=== PATIENT | female | born 1970 | race Two or more races ===

== ENCOUNTER → 2017-03-17 | Outpatient (CLI) | payer MEDICAID | END | disposition home or self-care (01) | LOC: RT 10:40 | PROVIDERS: ATTEND Internal Medicine Pulmonary Disease | DX: J45.998 Other asthma (principal) | CPT/HCPCS: 94060; 94640 ==

== ENCOUNTER 2023-07-04 16:04 | Emergency (ER) | payer MEDICAID, OTHER ==
[~2023-07-04] VITALS: Ht 157.5 cm; Wt 94.5 kg
[2023-07-04 16:35] LABS: Basophils # (auto) 0 10 ^3/uL (0-0.2); Basophils % (auto) 0.6 % (0.0-2.0); Eosinophils # (auto) 0.1 10 ^3/uL (0-0.8); Eosinophils % (auto) 1.3 % (0.0-7.0); Hematocrit 41.5 % (36.0-46.0); Hemoglobin 14.1 g/dL (12.2-16.2); Lymphocytes # (auto) 0.8 10 ^3/uL (0.4-5.4); Lymphocytes % (auto) 11.1 % (10.0-50.0); Mean Corpuscular Hemoglobin 28.9 pg (28.0-32.0); Mean Corpuscular Hgb Conc. 33.9 g/dL (32.0-36.0); Mean Corpuscular Volume 85.4 fL (80.0-100.0); Monocytes # (auto) 0.7 10 ^3/uL (0-1.3); Monocytes % (auto) 10.3 % (0.0-12.0); Neutrophils # (auto) 5.4 10 ^3/uL (1.6-8.6); Neutrophils % (auto) 76.7 % (37.0-80.0); Nucleated Red Blood Cells % 0.1 %; Red Blood Cells 4.86 10^6/uL (4.0-5.20); Red Cell Distribution Width 13.5 % (11.8-14.3); White Blood Cell 7.1 10^3/uL (4.4-10.8)
[2023-07-04 17:06] LABS: Alanine Aminotransferase 34 U/L (7-40); Albumin 4.1 g/dL (3.2-4.8); Alkaline Phosphatase 111 U/L (46-116); Anion Gap 5.5 (5-15); Aspartate Aminotransferase 18 U/L (13-40); BUN/Creatinine Ratio 13.8 (10.0-20.0); Bilirubin, Total 0.5 mg/dL (0.2-1.0); Blood Urea Nitrogen 11 mg/dL (9-23); Calcium 9.3 mg/dL (8.5-10.1); Carbon Dioxide 29.5 mmol/L (20-30); Chloride 105 mmol/L (98-107); Glucose 107 mg/dL (74-106); Potassium 4.4 mmol/L (3.5-5.1); Sodium 140 mmol/L (136-145)
[2023-07-04 17:07] LABS: Total Protein 6.8 g/dL (5.7-8.2)
[2023-07-04 18:28] LABS: Urine Bacteria NONE SEEN /hpf (None Seen); Urine Blood Negative /uL (Negative); Urine Clarity Clear (Clear); Urine Color Yellow (Yellow); Urine Mucus FEW (None Seen); Urine Protein, UAD Negative (Negative); Urine Urobilinogen Normal (Negative); Urine WBC <1 /hpf (0 - 5); Urine pH 6.5 (5.0-8.0)
[2023-07-04] MEDS ORDERED: AZITTAB PO (19:17)
[2023-07-04 21:55] VITALS: BP 138/76; PULSE 84; RESP 16; TEMP 98.6; O2SAT 97
== END 2023-07-04 21:55 | disposition home or self-care (01) ==
LOC: ER 16:04
DX: R07.89 Other chest pain (principal); J40 Bronchitis, not specified as acute or chronic; Z88.2 Allergy status to sulfonamides
CPT/HCPCS: 36415; 71045; 80053; 81001; 84484; 85025; 93005

== ENCOUNTER 2024-04-01 15:15 | Emergency (ER) | payer MEDICAID ==
[~2024-04-01] VITALS: Ht 157.5 cm; Wt 96.0 kg
[~2024-04-01 15:15] MED LIST: AZITTAB PO
[2024-04-01 15:46] LABS: Basophils # (auto) 0.1 10 ^3/uL (0-0.2); Basophils % (auto) 0.9 % (0.0-2.0); Eosinophils # (auto) 0.4 10 ^3/uL (0-0.8); Eosinophils % (auto) 5.4 % (0.0-7.0); Hematocrit 43.7 % (36.0-46.0); Hemoglobin 14.8 g/dL (12.2-16.2); Lymphocytes # (auto) 1.1 10 ^3/uL (0.4-5.4); Lymphocytes % (auto) 13.5 % (10.0-50.0); Mean Corpuscular Hemoglobin 29.8 pg (28.0-32.0); Mean Corpuscular Volume 87.6 fL (80.0-100.0); Monocytes # (auto) 0.8 10 ^3/uL (0-1.3); Monocytes % (auto) 10.2 % (0.0-12.0); Neutrophils # (auto) 5.7 10 ^3/uL (1.6-8.6); Nucleated Red Blood Cells % 0.1 %; Red Blood Cells 4.98 10^6/uL (4.0-5.20); Red Cell Distribution Width 13.1 % (11.8-14.3); White Blood Cell 8.2 10^3/uL (4.4-10.8)
[2024-04-01 16:00] LABS: Alanine Aminotransferase 32 U/L (7-40); Albumin 4.3 g/dL (3.2-4.8); Alkaline Phosphatase 106 U/L (46-116); Anion Gap 6 (5-15); Aspartate Aminotransferase 19 U/L (13-40); BUN/Creatinine Ratio 15.1 (10.0-20.0); Blood Urea Nitrogen 11 mg/dL (9-23); Calcium 10.1 mg/dL (8.7-10.4); Carbon Dioxide 28 mmol/L (20-30); Chloride 106 mmol/L (98-107); Glucose 117 mg/dL (74-106); Potassium 4.3 mmol/L (3.5-5.1); Sodium 140 mmol/L (136-145)
[2024-04-01 16:01] LABS: Bilirubin, Total 0.5 mg/dL (0.2-1.0); Total Protein 7.4 g/dL (5.7-8.2)
[2024-04-01] MEDS: IOHEXOL 350 MG/ML 100ML IJ ONE ×2 (18:52→20:02)
[2024-04-01 22:20] VITALS: BP 123/65; TEMP 98
[2024-04-01 22:22] VITALS: PULSE 88; RESP 16; O2SAT 98
== END 2024-04-01 22:30 | disposition home or self-care (01) ==
LOC: ER 15:15
DX: I51.7 Cardiomegaly (principal); R07.89 Other chest pain; E11.9 Type 2 diabetes mellitus without complications; Z88.2 Allergy status to sulfonamides; Z79.899 Other long term (current) drug therapy
CPT/HCPCS: 36415; 71045; 71275; 80053; 83880; 84443; 84484; 85025; 85379; 93005; 99285; Q9967

== ENCOUNTER 2025-03-29 14:24 | Emergency (ER) | payer MEDICAID ==
[~2025-03-29] VITALS: Ht 157.5 cm; Wt 89.2 kg
[2025-03-29 14:55] VITALS: PULSE 74; RESP 17; O2SAT 100
--- NOTE | 2025-03-29 15:45 | ED.PDOC ---
GI ASSESSMENT HPI Comments 54 year old female presents to the ED with chief complaint of abdominal pain. Patient reports that she has been experiencing LUQ/LLQ abdominal pain with associated N/V/D and dizziness for the past 4 days, but has had similar symptoms intermittently since September 2024. Patient relays that her pain radiates to her back. Patient states she is currently on Mounjaro for her DM. Patient noted to have a near-syncopal episode in triage. Patient denies any hematemesis, melena, fever, chills, SOB, chest pain, dysuria, hematuria, or flank pain. Chief Complaint: Nausea/Vomiting Time Seen by MD: 15:28 Reviewed Notes: Nurses Notes, Medications, Allergies Allergies: Coded Allergies: Sulfa Antibiotics (Verified Allergy, Unknown, 07/04/23) Home Meds Active Scripts Azithromycin (Zithromax Z-B[place]) 250 Mg Tab, 250 MG PO DAILY for 5 Days, #6 TAB Prov:GUALBERTO PORTILLO 07/04/23 Information Source: Patient Mode of Arrival: Ambulatory Timing: Days Duration: Since onset Prehospital treatment: None Quality: Sharp Vomitus: Watery Stool: Watery Severity: Moderate Recent: None Recent Hx of: None Pain Location: LUQ, LLQ Associated sign and symptoms: Nausea, Vomiting, Diarrhea, Abdominal Pain, Faintness (x) Past Medical History PAST MEDICAL HISTORY: Asthma, DM Past Medical History (Other): Rheumatoid arthritis, patchy lung disease, unspecified immune disease Surgical History: Appendectomy, Cholecystectomy, Hysterectomy Surgical History (Other): Intestinal resection, lumpectomy of chest, bilateral hand surgery, neck surgery TECHNICAL RESEARCH SCIENTIST History: No Pertinent TECHNICAL RESEARCH SCIENTIST History Family History Family History: Reviewed,noncontributory to illness Social History Smoker: Non-Smoker Alcohol: Denies ETOH Use Drugs: Denies Drug Use Lives In: Home Constitutional: denies: chills, diaphoresis, fatigue, fever, malaise, sweats, weakness, others EENTM: denies: blurred vision, double vision, ear bleeding, ear discharge, ear drainage, ear pain, ear ringing, eye pain, eye redness, hearing loss, mouth pain, mouth swelling, nasal discharge, nose bleeding, nose congestion, nose pain, photophobia, tearing, throat pain, throat swelling, voice changes, others Respiratory: denies: cough, hemoptysis, orthopnea, SOB at rest, shortness of breath, SOB with excertion, stridor, wheezing, others Cardiovascular: reports: lightheadedness; denies: chest pain, dizzy spells, diaphoresis, Dyspnea on exertion, edema, irregular heart beat, left arm pain, palpitations, PND, syncope, others Gastrointestinal: reports: abdominal pain, diarrhea, nausea, vomiting; denies: abdomen distended, blood streaked bowels, constipated, dysphagia, difficulty swallowing, hematemesis, melena, poor appetite, poor fluid intake, rectal bleeding, rectal pain, others Genitourinary: denies: abnormal vagina bleeding, burning, dyspareunia, dysuria, flank pain, frequency, hematuria, incontinence, pain, , vagina discharge, urgency, others Neurological: denies: dizziness, fainting, headache, left sided numbness, left sided weakness, numbness, paresthesia, pre-existing deficit, right sided numbness, right sided weakness, seizure, speech problems, tingling, tremors, weakness, others Musculoskeletal: denies: back pain, gout, joint pain, joint swelling, muscle pain, muscle stiffness, neck pain, others Integumetry: denies: bruises, change in color, change in hair/nails, dryness, laceration, lesions, lumps, rash, wounds, others Allergic/Immunocompromised: denies: Difficulty Healing, Frequent Infections, Hives, Itching, others Hematologic/Lymphatic: denies: anemia, blood clots, easy bleeding, easy bruising, swollen glands, others Endocrine: denies: excessive hunger, excessive sweating, excessive thirst, excessive urination, flushing, intolerance to cold, intolerance to heat, unexplained weight gain, unexplained weight loss, others Psychiatric: denies: anxiety, bipolar disorder, depression, hopeless, panic disorder, schizophrenia, sleepless, suicidal, others All Other Systems: Reviewed and Negative Physical Exam General Appearance: Mild Distress, Obese HEENT: Normal ENT Inspection, PERRL/EOMI Neck: Full Range of Motion, Non-Tender, Normal, Normal Inspection Respiratory: Chest Non-Tender, Lungs Clear, No Accessory Muscle Use, No Respiratory Distress, Normal Breath Sounds Cardiovascular: No Edema, No JVD, No Murmur, No Gallop, Normal Peripheral Pulses, Regular Rate/Rhythm Breast Exam: Deferred Gastrointestinal: Distended, Epigastric, LUQ, No Organomegaly, No Pulsatile Mass, Normal Bowel Sounds, Soft, Tenderness Genitalia: Deferred Pelvic: Deferred Rectal: Deferred Extremities: No calf tenderness, Normal capillary refill, Normal inspection, Normal range of motion, Non-tender, No pedal edema Musculoskeletal : Apperance: Normal Neurologic: Alert, poultry dressing worker II-XII nml as Tested, No Motor Deficits, Normal Affect, Normal Mood, No Sensory Deficits Cerebellar Function: Normal Reflexes: Normal Skin: Dry, Normal Color, Warm Peripheral Pulses: 1+ carotid (R), 1+ carotid (L) Lymphatic: No Adenopathy EKG EKG : Pulse Rate (adult): 78 [place]: Normal Cardiac Rhythm: NSR Was a procedure done? Was a procedure done?: No GI differential Dx Differential Diagnosis: Constipation, Diverticular disease, Gastritis/PUD, Gastroenteritis, Inflammatory BD, Pancreatitis, UTI, Dehydration, Diabetes/ DKA, Drug toxicity, Electrolyte Imbalance, Food Poisoning, Bacterial, Viral, Ischemic Bowel (SPLENIC FLEXURE SYNDROME SPLENIC FLEXURE SYNDROME), Mass, Anemia Other Differential Diagnosis SPLENIC FLEXURE SYNDROME X-Ray, Labs, Meds, VS Vital Signs Date Time Temp Pulse Resp B/P (MAP) Pulse Ox O2 Delivery O2 Flow Rate FiO2 03/29/25 17:00 98.7 77 16 121/87 (98) 100 98.7 03/29/25 16:46 77 16 95/65 03/29/25 16:30 78 03/29/25 16:08 88 19 122/87 03/29/25 14:55 74 17 100 Room Air* 0 21 03/29/25 14:52 97.5 74 17 123/83 (96) 100 97.5 03/29/25 14:45 78 03/29/25 14:36 97.9 88 20 155/99 (117) 100 97.9 Lab Test 03/29/25 17:53 03/29/25 15:55 03/29/25 14:30 Range/Units Urine Color Light-yellow Yellow Urine Clarity Clear Clear Urine pH 6.0 5.0-9.0 Urine Specific [place] > 1.035 H 1.001-1.035 Urine Protein Trace H Negative Urine Ketones 1+ H Negative Urine Blood Negative Negative /uL Urine Nitrite Negative Negative Urine Bilirubin Negative Negative Urine Urobilinogen Normal Negative mg/dL Urine Leukocyte Esterase Negative Negative /uL Urine RBC 2 0 - 4 /hpf Urine Microscopic WBC 7 H 0-5 /HPF Urine Squamous Epithelial Cells Mod <5 /hpf Urine Bacteria Few H None Seen /hpf Urine Mucus Few None Seen Urine Glucose Normal Normal mg/dL White Blood Count 9.3 4.4-10.8 10^3/uL Red Blood Count 5.25 H 4.0-5.20 10^6/uL Hemoglobin 15.7 12.2-16.2 g/dL Hematocrit 45.9 36.0-46.0 % Mean Corpuscular Volume 87.3 80.0-100.0 fL Mean Corpuscular Hemoglobin 30.0 28.0-32.0 pg Mean Corpuscular Hemoglobin Concent 34.3 32.0-36.0 g/dL Red Cell Distribution Width 13.6 11.8-14.3 % Platelet Count 314 140-450 10^3/uL Mean Platelet Volume 6.9 6.9-10.8 fL Neutrophils (%) (Auto) 75.6 37.0-80.0 % Lymphocytes (%) (Auto) 10.0 10.0-50.0 % Monocytes (%) (Auto) 10.5 0.0-12.0 % Eosinophils (%) (Auto) 3.6 0.0-7.0 % Basophils (%) (Auto) 0.3 0.0-2.0 % Neutrophils # (Auto) 7.0 1.6-8.6 10 ^3/uL Lymphocytes # (Auto) 0.9 0.4-5.4 10 ^3/uL Monocytes # (Auto) 1.0 0-1.3 10 ^3/uL Eosinophils # (Auto) 0.3 0-0.8 10 ^3/uL Basophils # (Auto) 0 0-0.2 10 ^3/uL Nucleated Red Blood Cells 0.1 % Sodium Level 140 136-145 mmol/L Potassium Level 3.9 3.5-5.1 mmol/L Chloride Level 107 98-107 mmol/L Carbon Dioxide Level 24 20-31 mmol/L Anion Gap 9 5-15 Blood Urea Nitrogen 13 9-23 mg/dL Creatinine 0.81 0.550-1.02 mg/dL Glomerular Filtration Rate Calc 86 >90 mL/min BUN/Creatinine Ratio 16.0 10.0-20.0 Serum Glucose 89 74-106 mg/dL Calcium Level 9.6 8.7-10.4 mg/dL Magnesium Level 2.1 1.6-2.6 mg/dL Total Bilirubin 0.6 0.2-1.0 mg/dL Aspartate Amino Transferase (AST) 19 13-40 U/L Alanine Aminotransferase (ALT) 19 7-40 U/L Alkaline Phosphatase 98 46-116 U/L Total Protein 7.0 5.7-8.2 g/dL Albumin 4.5 3.2-4.8 g/dL Lipase 48 12-53 U/L POC Glucose 97 70-106 mg/dl Current Medications Medications (Trade) Dose Ordered Sig/Jada Route Start Time Stop Time Status Last Admin Metoclopramide HCl (Reglan Injection) 10 mg ONCE ONCE IV 03/29/25 15:45 03/29/25 15:48 DC 03/29/25 16:09 Morphine Sulfate 2 mg ONCE ONCE IV 03/29/25 15:45 03/29/25 15:48 DC 03/29/25 16:08 Sodium Chloride 500 ml @ 500 mls/hr Q1H ONCE IVB 03/29/25 15:45 03/29/25 16:44 DC 03/29/25 16:09 Sodium Chloride 1,000 ml @ 150 mls/hr Q6H40M ONCE IV 03/29/25 15:45 03/29/25 18:33 DC 03/29/25 16:46 X-Ray, Labs, Meds, VS Comment COURSE IN THE EMERGENCY DEPARTMENT EVENTFUL PATIENT CAME IN COMPLAINING OF NAUSEA VOMITING DIARRHEA AND LEFT-SIDED ABDOMINAL PAIN PATIENT WITH A HISTORY OF ASTHMA RHEUMATOID ARTHRITIS DIABETES CHEST X-RAY IS NORMAL EKG SHOWS NORMAL SINUS RHYTHM AT 78 CT ABDOMEN AND PELVIS NEGATIVE EXCEPT FOR SOME STOOL AT THE SPLENIC FLEXURE CBC NORMAL LIPASE 48 CMP NEGATIVE MAGNESIUM 2.1 PATIENT WILL BE DISCHARGED HOME TO FOLLOW UP WITH HER PCP Time of 1ST Reevaluation: 16:28 Reevaluation 1ST: Unchanged Patient Education/Counseling: Diagnosis, Treatment Family Education/Counseling: No Family Present Departure 1 Departure Time of Disposition: 18:42 Impression: Primary Impression: Left sided abdominal pain Additional Impressions: Splenic flexure syndrome Rheumatoid arthritis Qualified Codes: M05.9 - Rheumatoid arthritis with rheumatoid factor, unspecified Diabetes mellitus Disposition: 01 HOME / SELF CARE / HOMELESS Condition: Fair Additional Instructions: PUSH FLUIDS AND FOLLOW UP WITH YOUR PCP e-Prescriptions Magnesium Oxide (MAGNESIUM OXIDE) 400 Mg Tab 1 TAB PO DAILY, #30 TAB 5 Refills Prov: BLAISE RILEY MD 03/29/25 Sennosides-Docusate Sodium (Senna-Plus) 1 Tab Tab 2 TAB PO DAILY for 10 Days, #20 TAB Prov: BLAISE RILEY MD 03/29/25 Discharged With: Self Critical Care Note Critical Care Time?: No Stability Stability form required: No Heart Score Heart Score: Heart Score Response (Comments) Value History N/A 0 EKG Normal 0 Age 45-64 1 Risk Factors 1 or 2 risk factors 1 Troponin N/A 0 Total 2 I personally scribed for BLAISE RILEY MD ([email or web address]) on 03/29/25 at 15:45. Electronically submitted by Dmitriy Abdalla ([email or web address]). I personally scribed for BLAISE RILEY MD ([email or web address]) on 03/29/25 at 15:46. Electronically submitted by Dmitriy Abdalla ([email or web address]). BLAISE RILEY MD March 29, 2025 15:45
[2025-03-29] MEDS: MORPHINE SULFATE 4 MG/ML SYR/VIAL IV ONE (16:08)
[2025-03-29] MEDS: SODIUM CHLORIDE 0.9% 500 ML IVB ONE (16:09)
[2025-03-29] MEDS: METOCLOPRAMIDE HCL 5MG/ml INJ 2ml VIAL IV ONE (16:09)
[2025-03-29 16:12] LABS: Basophils # (auto) 0 10 ^3/uL (0-0.2); Basophils % (auto) 0.3 % (0.0-2.0); Eosinophils # (auto) 0.3 10 ^3/uL (0-0.8); Eosinophils % (auto) 3.6 % (0.0-7.0); Hematocrit 45.9 % (36.0-46.0); Hemoglobin 15.7 g/dL (12.2-16.2); Lymphocytes # (auto) 0.9 10 ^3/uL (0.4-5.4); Mean Corpuscular Hgb Conc. 34.3 g/dL (32.0-36.0); Mean Corpuscular Volume 87.3 fL (80.0-100.0); Monocytes % (auto) 10.5 % (0.0-12.0); Neutrophils % (auto) 75.6 % (37.0-80.0); Nucleated Red Blood Cells % 0.1 %; Platelet Count (auto) 314 10^3/uL (140-450); Red Blood Cells 5.25 10^6/uL (4.0-5.20); Red Cell Distribution Width 13.6 % (11.8-14.3); White Blood Cell 9.3 10^3/uL (4.4-10.8)
[2025-03-29 16:28] LABS: Alanine Aminotransferase 19 U/L (7-40); Albumin 4.5 g/dL (3.2-4.8); Alkaline Phosphatase 98 U/L (46-116); Anion Gap 9 (5-15); Aspartate Aminotransferase 19 U/L (13-40); Bilirubin, Total 0.6 mg/dL (0.2-1.0); Blood Urea Nitrogen 13 mg/dL (9-23); Calcium 9.6 mg/dL (8.7-10.4); Carbon Dioxide 24 mmol/L (20-31); Glucose 89 mg/dL (74-106); Magnesium 2.1 mg/dL (1.6-2.6); Potassium 3.9 mmol/L (3.5-5.1); Sodium 140 mmol/L (136-145)
[2025-03-29 16:30] LABS: Chloride 107 mmol/L (98-107)
[2025-03-29 16:39] LABS: Lipase 48 U/L (12-53)
[2025-03-29] MEDS: SODIUM CHLORIDE 0.9% 1,000 ML IV ONE (16:46)
[2025-03-29] MEDS: IOHEXOL 300 MG/ML 100ML BOTTLE IJ ONE (16:55)
[2025-03-29 17:00] VITALS: BP 121/87; PULSE 77; RESP 16; TEMP 98.7; O2SAT 100
--- NOTE | 2025-03-29 17:19 | DVH ---
XY CHEST TWO VIEWS ROUTINE CLINICAL HISTORY: PATIENT WITH A RHEUMATOID ARTHRITIS AND MULTIPLE LUNG NODULE COMPARISON: None TECHNIQUE: Frontal and lateral view of the chest was obtained FINDINGS: Lines and Tubes: Anterior fusion lower cervical spine no significant change from 04/01 2024. Lungs: No focal consolidation. Pleura: No effusion. No pneumothorax. Cardiomediastinal contours: Unremarkable Bones: No acute osseous abnormality. IMPRESSION: 1. No acute cardiopulmonary disease.
--- NOTE | 2025-03-29 17:25 | DVH ---
Exam: CT CT AB PEL WITH IV CON ONLY History: DIFFUSE ABDOMINAL PAIN MOSTLY LEFT UPPER QUADRANT AND EPIGAS Comparison Study: None Contrast: Type of contrast: Omni 300 Contrast injected: 80 Contrast wasted: 0 TECHNIQUE: A digital director of people image was obtained. During the uneventful, intravenous administration of c ontrast material, multislice data acquisition was obtained through the abdomen and pelvis. The data s et was subsequently reconstructed into axial images. Images were reviewed on a work station using a c ombination of axial and multiplanar using a variety of window levels and settings. Radiation Dose Information: CT Dose: CTDI volume is 25.37 mGy. Dose-length product is 1344.83 mGy*cm FINDINGS: Lung Bases: No acute or significant lung base finding. Normal heart size. No pleural or pericardial effusion. Liver: The liver is normal in size. No focal lesions. Normal hepatic vascular enhancement. Gallbladder and Biliary Tree: Gallbladder has been surgically removed. Spleen: Unremarkable Pancreas: The pancreas is normal in appearance without focal lesions or abnormal enhancement. Adrenal Glands: Unremarkable Kidneys: Kidneys demonstrate normal symmetric enhancement without focal lesions, calculi or hydroneph rosis. Bladder: Unremarkable Bowel: The stomach is grossly normal in appearance. Small bowel and colon are normal in caliber and d istribution. The appendix is not visualized; however, no secondary findings of acute appendicitis donavan ntified. Ascites: Absent Lymphadenopathy: No mesenteric, retroperitoneal or periportal lymphadenopathy. Abdominal Wall and Mesentery: Unremarkable. Vasculature: The visualized abdominal aorta is normal in size and caliber. Abdominal and pelvic vess els demonstrate normal enhancement. Pelvic Organs: Unremarkable Musculoskeletal: No aggressive focal bony lesions, acute fractures or dislocation. Soft tissues: Unremarkable. IMPRESSION: 1. No findings of bowel obstruction. 2. Gallbladder has been surgically removed. 3. No nephrolithiasis or hydronephrosis. 4. Stool in the colon in the splenic flexure. 5. No free air or free fluid. All CT scans at this medical facility are performed using dose modulation techniques as appropriate t o a performed exam including the following: Automated exposure control was utilized; adjustment of th e MA and/or KV according to patient size; and use of iterative reconstruction technique.
[2025-03-29 18:08] LABS: Urine Bacteria FEW /hpf (None Seen); Urine Blood Negative /uL (Negative); Urine Clarity Clear (Clear); Urine Color Light-Yellow (Yellow); Urine Mucus FEW (None Seen); Urine Protein, UAD TRACE (Negative); Urine Squamous Epithelial Cell MOD /hpf (<5); Urine Urobilinogen Normal (Negative); Urine WBC 7 /HPF (0-5)
[2025-03-29 18:15] LABS: Urine Specific Gravity > 1.035 (1.001-1.035)
[2025-03-29] MEDS ORDERED: MAGN400T40 PO (18:45)
[2025-03-29] MEDS ORDERED: SENN-208 PO (18:45)
--- NOTE | 2025-03-31 12:57 | ECG ---
[facility] Test Date: 2025-03-29 Test Time: 14:40:23 Pat Name: DANYA LEBLANC Department: ED Room: Gender: F Hydraulic Repairer: JULITO : 1970 Requested By: BLAISE RILEY Order Number: [id number] Reading MD: Measurements Intervals [place] Rate: 78 P: 56 WA: 148 QRS: 34 QRSD: 83 T: 49 QT: 378 QTc: 431 Interpretive Statements Sinus rhythm Please click the below link to view image of tracing.
== END 2025-03-29 18:31 | disposition home or self-care (01) ==
LOC: ER 14:24
DX: K59.89 Other specified functional intestinal disorders (principal); R10.12 Left upper quadrant pain; M06.9 Rheumatoid arthritis, unspecified; E11.9 Type 2 diabetes mellitus without complications; J45.909 Unspecified asthma, uncomplicated; Z90.710 Acquired absence of both cervix and uterus; Z90.49 Acquired absence of other specified parts of digestive tract; Z98.890 Other specified postprocedural states; Z88.2 Allergy status to sulfonamides
CPT/HCPCS: 36415; 71046; 74177; 80053; 81001; 82947; 83690; 83735; 85025; 93005; 96361; 96374; 96375; 99285; J2270; J2765; J7030; J7040; Q9967; 82962